=== PATIENT | male | born 1970 | race Native Hawaiian/Other Pacific Islander ===

== ENCOUNTER 2016-11-26 09:51 | Emergency (ER) | payer OTHER ==
[~2016-11-26] VITALS: Ht 167.6 cm; Wt 90.7 kg
[~2016-11-26 09:51] MED LIST: LISI20TA24 PO; METF500T PO; PANT40TA PO
[2016-11-26 11:23] VITALS: BP 134/76; TEMP 98
== END 2016-11-26 11:24 | disposition home or self-care (01) ==
LOC: ED 09:51
DX: S90.02XA Contusion of left ankle, initial encounter (principal); W19.XXXA Unspecified fall, initial encounter; Y92.009 Unspecified place in unspecified non-institutional (private) residence as the place of occurrence of the external cause
CPT/HCPCS: 99282

== ENCOUNTER 2019-07-01 08:59 | Emergency (ER) | payer OTHER ==
[~2019-07-01] VITALS: Ht 167.6 cm; Wt 85.7 kg
[2019-07-01 09:03] VITALS: BP 135/95; TEMP 97.9
[2019-07-01 09:30] LABS: PLATELET COUNT 247 K/uL (142-355)
[2019-07-01 09:35] LABS: POTASSIUM 4.4 mmol/L (3.6-5.2)
== END 2019-07-01 12:05 | disposition home or self-care (01) ==
LOC: ED 08:59
PROVIDERS: Emergency Medicine
DX: E11.10 Type 2 diabetes mellitus with ketoacidosis without coma (principal); Z79.84 Long term (current) use of oral hypoglycemic drugs; E87.1 Hypo-osmolality and hyponatremia; E86.0 Dehydration
CPT/HCPCS: 80053; 81000; 82947; 85027; 96360; 96361; 96375; 99284; J1815

== ENCOUNTER 2019-11-06 09:42 | Emergency (ER) | payer OTHER ==
[~2019-11-06] VITALS: Ht 167.6 cm; Wt 90.7 kg
[2019-11-06 10:37] LABS: PLATELET COUNT 179 K/uL (142-355)
[2019-11-06 10:43] LABS: POTASSIUM 3.8 mmol/L (3.6-5.2)
[2019-11-06 11:30] VITALS: BP 156/94; TEMP 98.9
== END 2019-11-06 11:30 | disposition home or self-care (01) ==
LOC: ED 09:42
PROVIDERS: Hospitalist
DX: J10.1 Influenza due to other identified influenza virus with other respiratory manifestations (principal); R11.2 Nausea with vomiting, unspecified; R19.7 Diarrhea, unspecified
CPT/HCPCS: 80048; 85027; 87502; 87651; 99283

== ENCOUNTER 2022-06-04 19:15 | Emergency (ER) | payer OTHER ==
[~2022-06-04] VITALS: Ht 175.3 cm; Wt 90.7 kg
[2022-06-04 20:30] VITALS: BP 162/97; TEMP 97.8
== END 2022-06-04 20:30 | disposition home or self-care (01) ==
LOC: ED 19:15
DX: J06.9 Acute upper respiratory infection, unspecified (principal); U07.1 COVID-19; F17.210 Nicotine dependence, cigarettes, uncomplicated
CPT/HCPCS: 87502; 87635; 87651; 99283; U0003

== ENCOUNTER 2022-09-04 10:26 | Emergency (ER) | payer OTHER ==
[~2022-09-04] VITALS: Ht 167.6 cm; Wt 90.7 kg
[2022-09-04 11:32] LABS: PLATELET COUNT 247 K/uL (142-355)
[2022-09-04 11:42] LABS: POTASSIUM 4.1 mmol/L (3.6-5.2)
[2022-09-04 12:35] VITALS: BP 138/89; TEMP 98.5
== END 2022-09-04 12:35 | disposition home or self-care (01) ==
LOC: ED 10:26
PROVIDERS: Emergency Medicine Emergency Medical Services
DX: M54.59 Other low back pain (principal)
CPT/HCPCS: 80048; 81002; 85027; 96360; 96374; 96375; 99284; J2270; J2405

== ENCOUNTER 2023-02-22 11:17 | Emergency (ER) | payer OTHER ==
[~2023-02-22] VITALS: Ht 167.6 cm; Wt 90.7 kg
[2023-02-22 11:22] VITALS: BP 127/90; TEMP 98.4
== END 2023-02-22 12:13 | disposition home or self-care (01) ==
LOC: ED 11:17
PROC: 0HBMXZZ Excision of Right Foot Skin, External Approach (ICD-10-PCS; principal; 2023-02-22)
DX: E11.628 Type 2 diabetes mellitus with other skin complications (principal); L84 Corns and callosities; L02.611 Cutaneous abscess of right foot; Z91.199 Patient's noncompliance with other medical treatment and regimen due to unspecified reason
CPT/HCPCS: 87070; 87077; 87185; 87186; 87205; 99282; 99283